=== PATIENT | female | born 1970 | race Two or more races ===

== ENCOUNTER 2020-06-12 10:13 | Emergency (ER) | payer OTHER ==
[~2020-06-12] VITALS: Ht 154.9 cm; Wt 77.1 kg
[2020-06-12] MEDS ORDERED: SYNTHROID75 MCG PO (10:42)
[2020-06-12] MEDS ORDERED: NORVASC5 MG PO (10:43)
[2020-06-12] MEDS ORDERED: ATACAND32 MG PO (10:43)
[2020-06-12] MEDS ORDERED: CRESTOR20 MG PO (10:43)
[2020-06-12] MEDS ORDERED: VOLTAREN-XR100 MG PO (12:32)
[2020-06-12] MEDS ORDERED: ORPHENADRINE C100 MG PO (12:32)
[2020-06-12] MEDS ORDERED: PERCOCET 5-3251 EACH PO (12:32)
== END 2020-06-12 12:55 | disposition home or self-care (01) ==
LOC: ER 10:13
DX: S20.213A Contusion of bilateral front wall of thorax, initial encounter (principal); S30.0XXA Contusion of lower back and pelvis, initial encounter; W18.39XA Other fall on same level, initial encounter; Y93.89 Activity, other specified; Y92.89 Other specified places as the place of occurrence of the external cause; Y99.8 Other external cause status

== ENCOUNTER 2021-01-26 09:02 | Outpatient (CLI) | payer OTHER ==
[~2021-01-26 09:02] MED LIST: ATACAND32 MG PO; CRESTOR20 MG PO; NORVASC5 MG PO; ORPHENADRINE C100 MG PO; PERCOCET 5-3251 EACH PO; SYNTHROID75 MCG PO; VOLTAREN-XR100 MG PO
== END 2021-01-26 09:03 | disposition home or self-care (01) ==
LOC: NUCLEAR 09:02
PROVIDERS: ATTEND Specialist
DX: M25.50 Pain in unspecified joint (principal)
CPT/HCPCS: 78315; A9503

== ENCOUNTER 2021-09-17 19:49 | Emergency (ER) | payer OTHER ==
[~2021-09-17] VITALS: Ht 162.6 cm; Wt 70.3 kg
[2021-09-17] MEDS ORDERED: DOLOGEN CAPLET1 EACH PO (21:04)
[2021-09-17] MEDS ORDERED: MEDROLPACK PO (21:04)
[2021-09-17] MEDS ORDERED: ZITHROMAX500 MG PO (21:04)
== END 2021-09-17 21:08 | disposition home or self-care (01) ==
LOC: ER 19:49
DX: U07.1 COVID-19 (principal); B34.9 Viral infection, unspecified; Z88.0 Allergy status to penicillin

== ENCOUNTER 2022-03-30 08:47 | Emergency (ER) | payer OTHER ==
[~2022-03-30] VITALS: Ht 154.9 cm; Wt 81.2 kg
[~2022-03-30 08:47] MED LIST changes: +DOLOGEN CAPLET1 EACH PO; +MEDROLPACK PO; +ZITHROMAX500 MG PO
[2022-03-30] MEDS ORDERED: CLONAZEPAM1 M1 PO (09:47)
== END 2022-03-30 14:53 | disposition home or self-care (01) ==
LOC: ER 08:47 → EMR PED 08:49 → ER 14:53
DX: U07.1 COVID-19 (principal)

== ENCOUNTER 2022-12-10 23:53 | Emergency (ER) | payer OTHER ==
[~2022-12-10] VITALS: Ht 154.9 cm; Wt 74.8 kg
[~2022-12-10 23:53] MED LIST changes: +CLONAZEPAM1 M1 PO
[2022-12-11] MEDS ORDERED: CRESTOR5 MG PO (00:04)
[2022-12-11] MEDS ORDERED: MEDI-MECLIZINE25 MG PO (05:08)
== END 2022-12-11 05:18 ==
LOC: ER 23:53
DX: R11.2 Nausea with vomiting, unspecified (principal); R19.7 Diarrhea, unspecified; R42 Dizziness and giddiness